=== PATIENT | female | born 1995 | race Caucasian/White ===

== ENCOUNTER 2024-02-14 16:08 | Emergency (ER) | payer MEDICAID, SELFPAY ==
[2024-02-14 16:34] VITALS: BP 98/70; PULSE 85; RESP 18; TEMP 36.6; O2SAT 98; BMI 40.7
--- NOTE | 2024-02-14 16:34 | ED.GENADULT ---
HPI - General Adult General Chief complaint: General Medical Stated complaint: Methadone dose Time Seen by Provider: 02/14/24 16:50 Source: patient, RN notes reviewed and old records reviewed Mode of arrival: ambulatory History of Present Illness ED Provider: Cayla Hobbs PA-C HPI narrative: 28-year-old female with a past medical history substance abuse currently on methadone presenting to the ED for methadone dosing. States missed today's dose, follows at [facility], takes 165 mg. States she was out of town & her ride fell through thus she was not able to make it to the clinic today. Denies substance use. Related Data Allergies Allergy/AdvReac Type Severity Reaction Status Date / Time No Known Allergies Allergy Verified 02/14/24 16:34 [No Known Allergies*] Review of Systems Review of Systems: Yes all other systems are reviewed and are negative Constitutional: Constitutional: Reports as per [facility] Past Medical History Attestation statement: The following information was validated with the patient. Source: old records reviewed Social History Social History Advance Directives: No Advance Directives Information Provided: No Do you have a plan to hurt others: No Plan Physical Exam ED Vital Signs: Vital Signs - 24 hr 02/14/24 16:34 02/14/24 19:30 Temperature 97.8 F 98.7 F Pulse Rate 85 89 Respiratory Rate 18 16 Blood Pressure 98/70 136/69 Pulse Oximetry 98 98 Oxygen Delivery Method Room Air Room Air BMI result Body Mass Index 40.7 Const General: cooperative, healthy appearing and no acute distress Orientation/consciousness: patient oriented x3 Limitations: no limitations HENMT Head: Yes normal to inspection and Yes atraumatic Ears: hearing grossly normal bilaterally General nose exam: Normal external nose present Face and sinus: Yes normal facial exam Eyes General: appearance normal, both eyes and all related structures EOM: EOMs intact bilaterally Neck Neck: Yes normal visual inspection and Yes no meningeal signs Resp Effort & Inspection: normal respiratory effort and no respiratory distress Cardio Rate: regular rate Skin Rashes: no rashes Wounds: no wounds Neuro General: patient oriented x3, tone normal and no meningeal signs Cranial nerves: Yes CN's II-XII intact bilaterally Gait exam (Neuro): Normal gait present Extrem General: Yes normal to inspection Course Course Course Narrative: -patients Methadone was verified -tox screen positive for methadone and THC Results discussed with patient including worrisome signs and symptoms and strict return precautions, and when to return to the emergency department. They verbalized understanding and feel safe for discharge at this time. Medications Administered Discontinued Medications Generic Name Dose Route Start Last Admin Trade Name Tito PRN Reason Stop Dose Admin Methadone HCl 165 mg 02/14/24 18:03 02/14/24 19:25 Methadone Hcl 20 Mg/2 Ml Oral.Conc PO 02/14/24 18:04 165 mg ONCE ONE Administration Medical Decision Making Medical Decision Making MDM Narrative: 28-year-old female with a past medical history substance abuse currently on methadone presenting to the ED for methadone dosing. On exam vital signs stable, NAD, nontoxic appearing. Last took methadone yesterday per patient. Plan: verify patients Methadone dosing Please refer to course for remaining clinical decision making, interpretation of labs/imaging results, and discussions with consultants and/or family members. Differential Diagnosis Differential Diagnoses: The differential diagnosis associated with the presentation includes As above Lab Data [facility] Lab Attestation statement: I reviewed the patient's lab results. Labs: Lab Results 02/14/24 Range/Units 18:47 Urine Opiates Screen Not Detected (Not Detect) Ur Buprenorphine Scrn Not Detected (Not Detect) ng/mL Ur Oxycodone Screen Not Detected (Not Detect) ng/mL Urine Methadone Screen Positive H (Not Detect) ng/mL Urine Fentanyl Screen Not Detected (Not Detect) Ur Barbiturates Screen Not Detected (Not Detect) Ur Phencyclidine Scrn Not Detected (Not Detect) Ur Amphetamines Screen Not Detected (Not Detect) U Benzodiazepines Scrn Not Detected (Not Detect) Urine Cocaine Screen Not Detected (Not Detect) U Marijuana (THC) Screen POSITIVE H (Not Detect) External Record Review External record reviewed: Inpatient record, Office record, Outpatient record, Prior outpatient labs, Prior outpatient radiology, Primary care record and Outside ED record Tests considered The following testing was considered but not selected: As above Prescription Management I considered prescription management with: Other Chronic Conditions Patient?s care impacted by: Other Social Determinants Patient?s care significantly limited by Social Determinants of Health including: Inadequate housing, Low income, Alcoholism and drug addiction in family, Problems related to primary support group, Unemployment, Problems related to employment and Other Social Determinant of Health Discharge Plan Discharge Clinical Impression: Methadone dependence Patient Disposition: Home, Self-Care Instructions: Opioid Use Disorder (ED) Additional Instructions: You were given your dose of methadone today. Please follow-up with your clinic tomorrow Avoid any drug use Referrals: Diana Remy NP [Primary Care Provider] - Interventions: ED Discharge Assessment Last Done: 02/14/24 19:30 Discharge Date/Time: 02/14/24 19:30 Print Language: [place]ralt[place]
--- NOTE | 2024-02-14 16:48 | PC.NURSE ---
attempted 3 different numbers to verify methadone and was unable to get through to a nurse and kept getting transferred. provider reached out to recovery
--- NOTE | 2024-02-14 18:26 | HE.PHANOTE ---
METHADONE CONFIRMATION FORM PATIENT GETS [facility] [place] 165MG WITH 5 TAKE HOME BOTTLES.
[2024-02-14 19:05] LABS: Amphetamine Screen Urine Not Detected (Not Detect); Barbiturates, Urine Not Detected (Not Detect); Benzodiazepines Screen Urine Not Detected (Not Detect); Buprenorphine Scr Not Detected (Not Detect); Cannabinoid Screen Urine POSITIVE (Not Detect); Cocaine Screen Urine Not Detected (Not Detect); Fentanyl, urine Not Detected (Not Detect); Methadone Screen, Urine Positive (Not Detect); Opiate Screen Urine Not Detected (Not Detect); Oxycodone Screen Urine Not Detected (Not Detect); Phencyclidine Screen Urine Not Detected (Not Detect)
[2024-02-14] MEDS: methADONE HCl 20 MG/2 ML ORAL.CONC 165 MG PO (19:25)
[2024-02-14 19:30] VITALS: BP 136/69; PULSE 89; RESP 16; TEMP 37.1; O2SAT 98
== END 2024-02-14 19:30 | disposition home or self-care (01) ==
PROVIDERS: Physician Assistant; Emergency Provider Internal Medicine; PCP Nurse Practitioner Family
DX: F11.20 Opioid dependence, uncomplicated (principal)
CPT/HCPCS: 80307; 99282; 99283